=== PATIENT | female | born 1985 | race American Indian/Alaskan Native ===

== ENCOUNTER 2017-07-27 11:09 | Emergency (ER) | payer BC, MEDICAID, OTHER ==
[2017-07-27 11:32] VITALS: BP 120/72
[2017-07-27] MEDS ORDERED: Ketorolac 30 MG/ML SDV IM ONE (11:50)
--- NOTE | 2017-07-27 11:57 | EDM.PDOC ---
ED HPI GENERAL MEDICAL PROBLEM - General Chief Complaint: Back Pain or Injury Stated Complaint: PAIN ON WHOLE LEFT SIDE Time Seen by Provider: 07/27/17 11:43 Source of Information: Reports: Patient, RN, RN Notes Reviewed History Limitations: Reports: No Limitations - History of Present Illness INITIAL COMMENTS - FREE TEXT/NARRATIVE: Patient presents to ER with complaint of left sided pain. States she played volleyball on Friday. Pain began on . She states pain 9/10 with movement. At rest it is 5/10. Coughing and laughing makes it worse. No trouble with urination, bowel movement, fever, chills, nausea, vomiting, diarrhea, chest pain and shortness of breath. Duration: Getting Worse Location: Reports: Chest Quality: Reports: Ache Severity: Moderate Improves with: Reports: None Worsens with: Reports: None Associated Symptoms: Reports: No Other Symptoms Right Back Pain Score (Numeric/FACES): 8 - Related Data Allergies Allergy/AdvReac Type Severity Reaction Status Date / Time No Known Allergies Allergy Verified 05/05/14 07:51 Home Meds: Home Meds Acetaminophen [Tylenol] 650 mg PO Q4H PRN #30 tablet 05/06/14 [Rx] Ibuprofen 800 mg PO Q8H PRN #30 tablet 05/06/14 [Rx] Past Medical History - Past Health History Medical/Surgical History: Denies Medical/Surgical History Social & Family History - Family History Family Medical History: Noncontributory - Tobacco Use Smoking Status *Q: Current Some Day Smoker Years of Tobacco use: 5 Packs/Tins Daily: 0.1 Used Tobacco, but Quit: Yes Month Tobacco Last Used: 2010 Second Hand Smoke Exposure: Yes - Caffeine Use Caffeine Use: Reports: Coffee, Energy Drinks, Soda, Tea - Alcohol Use Days Per Week of Alcohol Use: 0 - Recreational Drug Use Recreational Drug Use: No - Living Situation & Occupation Living situation: Reports: with Family ED ROS GENERAL - Review of Systems Review Of Systems: ROS reveals no pertinent complaints other than HPI. ED EXAM, GENERAL - Physical Exam Exam: See Below Exam Limited By: No Limitations General Appearance: Alert, WD/WN, No Apparent Distress Eye Exam: Bilateral Eye: Normal Inspection Ears: Normal External Exam, Normal Canal, Hearing Grossly Normal, Normal TMs Nose: Normal Inspection, Normal Mucosa, No Blood Throat/Mouth: Normal Inspection, Normal Lips, Normal Teeth, Normal Gums, Normal Oropharynx, Normal Voice, No Airway Compromise Head: Atraumatic, Normocephalic Neck: Normal Inspection, Supple, Non-Tender, Full Range of Motion Respiratory/Chest: Other (tender) Cardiovascular: Normal Peripheral Pulses, Regular Rate, Rhythm, No Edema, No Gallop, No JVD, No Murmur, No Rub GI/Abdominal: Normal Bowel Sounds, Soft, Non-Tender, No Organomegaly, No Distention, No Abnormal Bruit, No Mass (Female) Exam: Deferred Rectal (Female) Exam: Deferred Back Exam: Other (tender left side.) Extremities: Normal Inspection, Normal Range of Motion, Non-Tender, Normal Capillary Refill, No Pedal Edema Neurological: Alert, Oriented, CN II-XII Intact, Normal Cognition, Normal Gait, Normal Reflexes, No Motor/Sensory Deficits Psychiatric: Normal Affect, Normal Mood Skin Exam: Warm, Dry, Intact, Normal Color, No Rash Lymphatic: No Adenopathy Course - Vital Signs Last Recorded V/S: Last Vital Signs Temp 98.4 F 07/27/17 11:31 Pulse 72 07/27/17 11:31 Resp 16 07/27/17 11:31 BP 120/72 07/27/17 11:31 Pulse Ox 100 07/27/17 11:31 - Orders/Labs/Meds Meds: Medications Discontinued Medications Generic Name Dose Route Start Last Admin Trade Name MiguelA ngelq PRN Reason Stop Dose Admin Ketorolac Tromethamine 60 mg 07/27/17 11:50 07/27/17 11:55 Toradol IM 07/27/17 11:51 60 mg ONETIME ONE Administration Orphenadrine Citrate 60 mg 07/27/17 12:00 07/27/17 11:58 Norflex IM 60 mg Q12H COSTA Administration Departure - Departure Time of Disposition: 11:56 Disposition: Home, Self-Care 01 Condition: Fair Clinical Impression: Muscle strain - Discharge Information Instructions: Back Injury Prevention, [id number], Muscle Strain, [id number] Forms: ED Department Discharge Additional Instructions: RX: Diclofenac, Norflex Rest, Heat, Ice as tolerated Follow up with your primary care facility if no improvement
== END 2017-07-27 12:14 | disposition home or self-care (01) ==
LOC: DL.ED 11:09
DX: T14.8XXA Other injury of unspecified body region, initial encounter (principal); F17.210 Nicotine dependence, cigarettes, uncomplicated; X58.XXXA Exposure to other specified factors, initial encounter; Y93.68 Activity, volleyball (beach) (court)
CPT/HCPCS: 96372; 99284; J1885; J2360

== ENCOUNTER 2018-10-22 02:31 | Inpatient (IN) | payer BC, MEDICAID ==
[2018-10-22] MEDS ORDERED: Lactated Ringers 1,000 ML IV ONE (04:03)
[2018-10-22] MEDS ORDERED: Misoprostol 400 MCG (4 X 100 MCG TAB) RECTAL PRN (04:20)
[2018-10-22] MEDS ORDERED: Lidocaine 1% 30 ML SDV INJECT PRN (04:20)
[2018-10-22] MEDS ORDERED: Tranexamic Acid 1,000 MG in Sodium Chloride 0.9% 100 ML IV PRN (04:20)
[2018-10-22] MEDS ORDERED: Carboprost Tromethamine 250 MCG/1 ML Amp IM PRN (04:20)
[2018-10-22] MEDS ORDERED: Sodium Chloride 0.9% 10 ML Syringe FLUSH PRN (04:20)
[2018-10-22] MEDS ORDERED: Methylergonovine 0.2 MG/1 ML Amp IM PRN (04:20)
[2018-10-22] MEDS ORDERED: Ondansetron 4 MG/2 ML SDV IV PRN (04:20)
[2018-10-22] MEDS ORDERED: Oxytocin/Normal Saline 30 UNIT/500 ML BAG IV SCH (04:30)
[2018-10-22] MEDS ORDERED: Calcium Carbonate 500 MG Tab.Chew PO PRN (09:46)
[2018-10-22] MEDS: Lactated Ringers 1,000 ML IV SCH ×3 (09:55→12:23)
--- NOTE | 2018-10-22 12:01 | PCM.LDHP ---
L&D History of Present Illness - General Date of Service: 10/22/18 (Admit H&P) Admit Problem/Dx: Patient Status Order with Admit Dx/Problem 10/22/18 04:20 Patient Status [ADT] Routine Admission Diagnosis/Problem Admission Diagnosis/Problem Labor established Source of Information: Patient, Old Records, Provider, RN, RN Notes Reviewed ( [facility] notes/ episode), Other History Limitations: Reports: No Limitations - History of Present Illness Introduction:: 33yo NA @ 38w5d presents to L&D with onset cxns. cervix 5-6cm AROM carried out. pitocin augmentation. requesting intrathecal. NST reactive. anticipate vag delivery. see episode for details. hmb Timing/Duration: Reports: minutes: (2-3), getting worse Location, : Reports: Uterus Severity: Moderate Associated Symptoms: Reports: vaginal discharge, mild amount - Related Data Allergies/Adverse Reactions: Allergies Allergy/AdvReac Type Severity Reaction Status Date / Time No Known Allergies Allergy Verified 10/22/18 03:07 Home Medications: Home Meds Acetaminophen [Tylenol] 650 mg PO Q4H PRN #30 tablet 05/06/14 [Rx] Ascorbate Calcium [Vitamin C] 500 mg PO DAILY 10/22/18 [History] Ferrous Sulfate 325 mg PO DAILY 10/22/18 [History] Levothyroxine [Synthroid] 50 mcg PO ACBREAKFAST 10/22/18 [History] PNV95/Ferrous Fumarate/FA [ Vitamin Tablet] 1 each PO DAILY 10/22/18 [ History] Ranitidine HCl [Ranitidine] 150 mg PO DAILY 10/22/18 [History] Past Medical History - Past Health History Medical/Surgical History: Denies Medical/Surgical History HEENT History: Reports: Other (See Below) Other HEENT History: wears glasses Gastrointestinal History: Reports: GERD Genitourinary History: Reports: [employer] History: Reports: , Spontaneous : 5 Para: 3 LMP (Approximate): Endocrine/Metabolic History: Reports: Hypothyroidism Hematologic History: Reports: Anemia - Infectious Disease History Infectious Disease History: Reports: Chicken Pox Social & Family History - Family History Family Medical History: Noncontributory - Tobacco Use Smoking Status *Q: Former Smoker Used Tobacco, but Quit: Yes Month/Year Tobacco Last Used: 01/2012 - Caffeine Use Caffeine Use: Reports: Tea - Recreational Drug Use Recreational Drug Use: No - Living Situation & Occupation Living situation: Reports: Single, with Family Occupation: Employed Social History Comment: [employer] [place]. nonsmoker. lives in with 3 kids. H&P Review of Systems - Review of Systems: Review Of Systems: ROS reveals no pertinent complaints other than HPI. General: Reports: No Symptoms HEENT: Reports: No Symptoms Pulmonary: Reports: No Symptoms Cardiovascular: Reports: No Symptoms Gastrointestinal: Reports: No Symptoms Genitourinary: Reports: No Symptoms Musculoskeletal: Reports: No Symptoms Skin: Reports: No Symptoms Psychiatric: Reports: No Symptoms Neurological: Reports: No Symptoms Hematologic/Lymphatic: Reports: No Symptoms Immunologic: Reports: No Symptoms L&D Exam - Exam Exam: See Below - Vital Signs Vital Signs: Last Vital Signs Temp 98.2 F 10/22/18 05:20 Pulse 77 10/22/18 05:20 Resp 16 10/22/18 05:20 BP 124/62 10/22/18 05:20 Pulse Ox Weight: 234 lb - OB Specific Fundal Height In cm: 40 Contraction Duration (sec): 80-100 Contraction Frequency (min): 2.5-7 Contraction Intensity: Mild to Moderate Movement: Active Heart Tones: Present Heart Tones per Min: 140 Heart Rate (FHR) Variability: Moderate (6-25 bmp) Presentation: Right Occiput Transverse (ROT) - Exam General: Alert, Oriented HEENT: PERRLA, Conjunctiva Clear, EACs Clear, EOMI, Hearing Intact, Mucosa Moist & [place], Nares Patent, Normal Nasal Septum, Posterior Pharynx Clear, TMs Clear Neck: Supple, Trachea Midline Lungs: Clear to Auscultation, Normal Respiratory Effort Cardiovascular: Regular Rate, Regular Rhythm GI/Abdominal Exam: Normal Bowel Sounds, Soft, Non-Tender, No Organomegaly, No Distention, No Abnormal Bruit, No Mass, Pelvis Stable Rectal Exam: Normal Exam, Normal Rectal Tone Genitourinary: Normal external exam, Normal bimanual exam, Normal speculum exam Back Exam: Normal Inspection, Full Range of Motion Extremities: Normal Inspection, Normal Range of Motion, Non-Tender, No Pedal Edema, Normal Capillary Refill Skin: Warm, Dry, Intact Neurological: Cranial Nerves Intact, Reflexes Equal Bilateral Psychiatric: Alert, Normal Affect, Normal Mood - Patient Data Lab Results Last 24 hrs: Laboratory Results - last 24 hr 10/22/18 Range/Units 03:55 WBC 9.7 (5.0-10.0) 10^3/uL RBC 3.84 L (4.2-5.4) 10^6/uL Hgb 11.3 L (12.0-16.0) g/dL Hct 34.3 L (37.0-47.0) % MCV 89.3 (80-100) fL MCH 29.4 (27.0-34.0) pg MCHC 32.9 L (33.0-35.0) g/dL Plt Count 224 (150-450) 10^3/uL Result Diagrams: 10/22/18 03:55 - Problem List (1) Blood type A+ SNOMED Code(s): 136109995 ICD Code: Z67.10 - TYPE A BLOOD, RH POSITIVE Status: Acute Current Visit : Yes (2) Anemia of SNOMED Code(s): 60077137 ICD Code: O99.019 - ANEMIA COMPLICATING , UNSPECIFIED TRIMESTER Status: Acute Current Visit: No (3) Normal SNOMED Code(s): 39542538 ICD Code: Z34.90 - ENCNTR FOR SUPRVSN OF NORMAL , UNSP, UNSP TRIMESTER Status: Acute Current Visit: No (4) Rubella non-immune SNOMED Code(s): 602762800 ICD Code: Z78.9 - OTHER SPECIFIED HEALTH STATUS Status: Acute Current Visit: No Problem List Initiated/Reviewed/Updated: Yes Orders Last 24hrs: Active Orders 24 hr Category Date Time Status Patient Status [ADT] Routine ADT 10/22/18 04:20 Active Communication Order [RC] ASDIRECTED Care 10/22/18 04:20 Active Notify Provider Vital Signs OB [RC] ASDIRECTED Care 10/22/18 04:20 Active Notify Provider [RC] PRN Care 10/22/18 04:20 Active OB Check [OM.PC] Click To Edit Care 10/22/18 02:40 Ordered Pump Management, Intrathecal [RC] ASDIRECTED Care 10/22/18 04:21 Active Up ad Nickie [RC] ASDIRECTED Care 10/22/18 04:20 Active Vital Signs [RC] 08,20 Care 10/22/18 04:20 Active Acetaminophen [Tylenol] Med 10/22/18 04:20 Active 650 mg PO Q4H PRN Calcium Carbonate [Tums] Med 10/22/18 09:46 Active 1,000 mg PO Q2H PRN Carboprost Tromethamine [Hemabate DS] Med 10/22/18 04:20 Active 250 mcg IM ASDIRECTED PRN Lactated Ringers [Ringers, Lactated] 1,000 ml Med 10/22/18 04:30 Active IV ASDIRECTED Lidocaine 1% [Xylocaine-MPF 1%] Med 10/22/18 04:20 Active 30 ml INJECT ASDIRECTED PRN Methylergonovine [Methergine] Med 10/22/18 04:20 Active 0.2 mg IM ASDIRECTED PRN Ondansetron [Zofran] Med 10/22/18 04:20 Active 4 mg IV Q4H PRN Oxytocin/Normal Saline [Pitocin in NS 30 UNIT/500 ML] Med 10/22/18 04:30 Active 30 unit in 500 ml IV TITRATE Sodium Chloride 0.9% [Saline Flush] Med 10/22/18 04:20 Active 10 ml FLUSH ASDIRECTED PRN Tranexamic Acid [Cyklokapron] 1,000 mg Med 10/22/18 04:20 Active Sodium Chloride 0.9% [Normal Saline] 100 ml IV ONETIME miSOPROStol [Cytotec] Med 10/22/18 04:20 Active 800 mcg RECTAL ASDIRECTED PRN Saline Lock Insert [OM.PC] Routine Oth 10/22/18 04:20 Ordered Resuscitation Status Routine Resus Stat 10/22/18 04:20 Ordered Medication Orders Acetaminophen (Tylenol) 650 mg PO Q4H PRN PRN Reason: Pain (Mild 1-3) and fever Calcium Carbonate/Glycine (Tums) 1,000 mg PO Q2H PRN PRN Reason: Heartburn Last Admin: 10/22/18 10:13 Dose: 1,000 mg Carboprost Tromethamine (Hemabate Ds) 250 mcg IM ASDIRECTED PRN PRN Reason: HEMORRHAGE Lactated Ringer's (Ringers, Lactated) 1,000 mls @ 125 mls/hr IV ASDIRECTED COSTA Last Admin: 10/22/18 11:55 Dose: 125 mls/hr Infusion: 10/22/18 11:55 Dose: 125 mls/hr Admin: 10/22/18 09:55 Dose: 125 mls/hr Oxytocin/Sodium Chloride (Pitocin In Ns 30 Unit/500 Ml) 30 unit in 500 mls @ 2 mls/hr IV TITRATE COSTA; Protocol Last Admin: 10/22/18 09:58 Dose: 2 munits/min, 2 mls/hr Tranexamic Acid 1,000 mg/ (Sodium Chloride) 110 mls @ 660 mls/hr IV ONETIME PRN PRN Reason: Bleeding Lidocaine HCl (Xylocaine-Mpf 1%) 30 ml INJECT ASDIRECTED PRN PRN Reason: Perineal Repair Methylergonovine Maleate (Methergine) 0.2 mg IM ASDIRECTED PRN PRN Reason: Hemorrhage Misoprostol (Cytotec) 800 mcg RECTAL ASDIRECTED PRN PRN Reason: Hemorrhage Ondansetron HCl (Zofran) 4 mg IV Q4H PRN PRN Reason: Nausea/Vomiting Sodium Chloride (Saline Flush) 10 ml FLUSH ASDIRECTED PRN PRN Reason: Keep Vein Open Assessment/Plan Comment:: term pegnancy 33yo NA @ 38w5d active labor AROM clear fluid pitocin augmentation requesting intrathecal reactive NST blood type A+ Plan: admit with routine orders. set up and anticipate vaginal delivery monitor closely. hmb
[2018-10-22] MEDS ORDERED: fentaNYL 100 MCG/2 ML SDV ONE (12:06)
[2018-10-22] MEDS ORDERED: EPINEPHrine 1 MG/ML SDV ONE (12:06)
--- NOTE | 2018-10-22 12:46 | PCM.PRNOTE ---
- Free Text/Narrative Note: Requested to provide analgesia to full term patient in severe pain. Upon entering the room, patient is sitting on edge of bed complaining of severe abdominal/pelvic pain and discomfort. Procedure was discussed with patient including adverse outcomes and expectations. Pt consented to analgesia, SAB/ IT. Pt placed into a proper sitting position. Landmarks for SAB/IT were identified and marked. Hands were washed and appropriate PPE was applied. Back was prepped with betadine x3. A sterile, transparent, fenestrated drape was applied. Excess betadine was removed. Using 3 mL of a 1% lidocaine solution , a skin wheel was placed at the L2/L3 interspace. A 24 ga (4 inch) Pencan spinal needle was inserted until positive for CSF. Negative for heme or paresthesias. Injected fentanyl 30 mcg, sufentanil 25 mcg, and 8.25 mg of a 0.75% bupivacaine solution with an epi wash. Pt was placed left lateral position for approximately 20 minutes. There were zero complications or adverse outcomes. Will continue to monitor. Procedure Date & Time: 10/22/18 [id number]
--- NOTE | 2018-10-22 14:59 | PCM.DEL ---
L & D Note - General Info Date of Service: 10/22/18 (Delivery note) Mother's Due Date: 10/31/18 (38w5d) - Delivery Note Labor: Spontaneous Delivery Outcome: Livebirth Infant Delivery Method: Spontaneous Vaginal Delivery-Single Infant Delivery Mode: Spontaneous Presentation: Right Occiput Transverse (ROT) Nuchal Cord: None Prep: Povidone-Iodine (Betadine Anesthesia Type: Intrathecal Amniotic Fluid Description: Clear Episiotomy Type: None Laceration: None Placenta: Intact, Expressed Cord: 3 Vessels Estimated Blood Loss: 200 (minimal--<200) Resuscitation Needed: No : Suctioned, Bulb Syringe, Stimulated, Warmed, [place] Used Provider: Tierra Davis Score 1 min: 9 Score 5 min: 9 Second Stage Interventions: Reports: Pushing, McRobert's Position Delivery Comments (Free Text/Narrative):: pushing, nurses holding legs back. pushed with one cxn and baby's head delivered. shoulders assited out by me, and remainder of baby delivered easily. viable male to mom's abdomen/chest for skin to skin. wiped clear and dry/stimulated. bulb suction. APGARs 9 & 9 strong cry at cord double clamped by me, then cut by Bernardo. cord blood sample obtained. 3VC noted. placenta delivered intact with gentle traction. perineum intact. EBL <200cc. both mom and baby doing well. . no complications. hmb - General Info Date of Service: 10/22/18 - Review of Systems General: Reports: No Symptoms HEENT: Reports: No Symptoms Pulmonary: Reports: No Symptoms Cardiovascular: Reports: No Symptoms Gastrointestinal: Reports: No Symptoms Genitourinary: Reports: No Symptoms Musculoskeletal: Reports: No Symptoms Skin: Reports: No Symptoms Neurological: Reports: No Symptoms Psychiatric: Reports: No Symptoms - Patient Data Vitals - Most Recent: Last Vital Signs Temp 97 F 10/22/18 08:57 Pulse 74 10/22/18 12:15 Resp 16 10/22/18 08:57 BP 126/61 10/22/18 12:15 Pulse Ox Weight - Most Recent: 234 lb Lab Results Last 24 Hours: Laboratory Results - last 24 hr 10/22/18 Range/Units 03:55 WBC 9.7 (5.0-10.0) 10^3/uL RBC 3.84 L (4.2-5.4) 10^6/uL Hgb 11.3 L (12.0-16.0) g/dL Hct 34.3 L (37.0-47.0) % MCV 89.3 (80-100) fL MCH 29.4 (27.0-34.0) pg MCHC 32.9 L (33.0-35.0) g/dL Plt Count 224 (150-450) 10^3/uL Med Orders - Current: Current Medications Acetaminophen (Tylenol) 650 mg PO Q4H PRN PRN Reason: Pain (Mild 1-3) and fever Calcium Carbonate/Glycine (Tums) 1,000 mg PO Q2H PRN PRN Reason: Heartburn Last Admin: 10/22/18 10:13 Dose: 1,000 mg Carboprost Tromethamine (Hemabate Ds) 250 mcg IM ASDIRECTED PRN PRN Reason: HEMORRHAGE Lactated Ringer's (Ringers, Lactated) 1,000 mls @ 125 mls/hr IV ASDIRECTED COSTA Last Admin: 10/22/18 12:23 Dose: 125 mls/hr Oxytocin/Sodium Chloride (Pitocin In Ns 30 Unit/500 Ml) 30 unit in 500 mls @ 2 mls/hr IV TITRATE COSTA; Protocol Last Titration: 10/22/18 12:00 Dose: 8 munits/min, 8 mls/hr Tranexamic Acid 1,000 mg/ (Sodium Chloride) 110 mls @ 660 mls/hr IV ONETIME PRN PRN Reason: Bleeding Lidocaine HCl (Xylocaine-Mpf 1%) 30 ml INJECT ASDIRECTED PRN PRN Reason: Perineal Repair Methylergonovine Maleate (Methergine) 0.2 mg IM ASDIRECTED PRN PRN Reason: Hemorrhage Misoprostol (Cytotec) 800 mcg RECTAL ASDIRECTED PRN PRN Reason: Hemorrhage Ondansetron HCl (Zofran) 4 mg IV Q4H PRN PRN Reason: Nausea/Vomiting Sodium Chloride (Saline Flush) 10 ml FLUSH ASDIRECTED PRN PRN Reason: Keep Vein Open Discontinued Medications Epinephrine HCl (Adrenalin) Confirm Administered Dose 1 mg .ROUTE .STK-MED ONE Stop: 10/22/18 12:07 Fentanyl (Sublimaze) Confirm Administered Dose 100 mcg .ROUTE .STK-MED ONE Stop: 10/22/18 12:07 Lactated Ringer's (Ringers, Lactated) 1,000 mls @ 999 mls/hr IV .BOLUS ONE Stop: 10/22/18 05:03 Last Admin: 10/22/18 11:32 Dose: 999 mls/hr Sufentanil Citrate (Sufenta) Confirm Administered Dose 50 mcg .ROUTE .STK-MED ONE Stop: 10/22/18 12:07 - Exam General: Alert, Oriented HEENT: Pupils Equal, Pupils Reactive, EOMI, Mucous Membr. Moist/[place] Neck: Supple Lungs: Clear to Auscultation, Normal Respiratory Effort Cardiovascular: Regular Rate, Regular Rhythm GI/Abdominal Exam: Normal Bowel Sounds, Soft, Non-Tender, Pelvis Stable (Female) Exam: Normal External Exam, Enlarged Uterus, Vaginal Bleeding Back Exam: Normal Inspection, Full Range of Motion Extremities: Normal Inspection, Normal Range of Motion, Non-Tender, No Pedal Edema (trace only), Normal Capillary Refill Skin: Warm, Dry, Intact Wound/Incisions: Healing Well Neurological: No New Focal Deficit Psy/Mental Status: Alert, Normal Affect, Normal Mood - Problem List & Annotations (1) Blood type A+ SNOMED Code(s): 592469075 Code(s): Z67.10 - TYPE A BLOOD, RH POSITIVE Status: Acute Current Visit: Yes (2) Anemia of SNOMED Code(s): 13848237 Code(s): O99.019 - ANEMIA COMPLICATING , UNSPECIFIED TRIMESTER Status: Acute Current Visit: No (3) Normal SNOMED Code(s): 80366337 Code(s): Z34.90 - ENCNTR FOR SUPRVSN OF NORMAL , UNSP, UNSP TRIMESTER Status: Acute Current Visit: No (4) Rubella non-immune SNOMED Code(s): 839038677 Code(s): Z78.9 - OTHER SPECIFIED HEALTH STATUS Status: Acute Current Visit: No (5) Vaginal delivery SNOMED Code(s): 941323361 Code(s): O80 - ENCOUNTER FOR FULL-TERM UNCOMPLICATED DELIVERY Status: Acute Current Visit: Yes (6) Mother currently breast-feeding SNOMED Code(s): 793615954 Code(s): TYL5390 - Status: Acute Current Visit: Yes - Problem List Review Problem List Initiated/Reviewed/Updated: Yes - My Orders Last 24 Hours: My Active Orders 10/22/18 02:40 OB Check [OM.PC] Click To Edit 10/22/18 04:20 Patient Status [ADT] Routine Communication Order [RC] ASDIRECTED Notify Provider Vital Signs OB [RC] ASDIRECTED Notify Provider [RC] PRN Up ad Nickie [RC] ASDIRECTED Vital Signs [RC] 08,20 Acetaminophen [Tylenol] 650 mg PO Q4H PRN Carboprost Tromethamine [Hemabate DS] 250 mcg IM ASDIRECTED PRN Lidocaine 1% [Xylocaine-MPF 1%] 30 ml INJECT ASDIRECTED PRN Methylergonovine [Methergine] 0.2 mg IM ASDIRECTED PRN Ondansetron [Zofran] 4 mg IV Q4H PRN Sodium Chloride 0.9% [Saline Flush] 10 ml FLUSH ASDIRECTED PRN Tranexamic Acid [Cyklokapron] 1,000 mg Sodium Chloride 0.9% [Normal Saline] 100 ml IV ONETIME miSOPROStol [Cytotec] 800 mcg RECTAL ASDIRECTED PRN Saline Lock Insert [OM.PC] Routine Resuscitation Status Routine 10/22/18 04:21 Pump Management, Intrathecal [RC] ASDIRECTED 10/22/18 04:30 Lactated Ringers [Ringers, Lactated] 1,000 ml IV ASDIRECTED Oxytocin/Normal Saline [Pitocin in NS 30 UNIT/500 ML] 30 unit in 500 ml IV TITRATE 10/22/18 09:46 Calcium Carbonate [Tums] 1,000 mg PO Q2H PRN - Plan Plan:: term pegnancy 33yo NA @ 38w5d active labor AROM clear fluid pitocin augmentation requesting intrathecal reactive NST blood type A+ Plan: admit with routine orders. set up and anticipate vaginal delivery monitor closely. hmb Assessment: uncomplicated vaginal delivery with one push over intact perineum viable male , 8lb 6oz, 3795g APGARs 9 & 9 born @ 1421 on 10[birth year]22-[birth year] . Plan: routine orders. rooming in as much as possible currently skin to skin in delivery room. hmb
[2018-10-22] MEDS ORDERED: Simethicone 80 MG Tab.Chew PO PRN (15:02)
[2018-10-22] MEDS ORDERED: Benzocaine/Menthol 20%-0.5% Spray 56 GM Canister TOP PRN (15:02)
[2018-10-22] MEDS ORDERED: Zolpidem 5 MG Tab PO PRN (15:02)
[2018-10-22] MEDS ORDERED: Measles, Mumps & Rubella Vaccine 0.5 ML SDV SUBCUT ONE (15:30)
[2018-10-22] MEDS: Ibuprofen 800 MG Tab PO PRN (17:12)
[2018-10-22] MEDS: Acetaminophen 325 MG Tab PO PRN (20:05)
[2018-10-22] MEDS: Docusate Sodium 100 MG Cap PO PRN (20:05)
[2018-10-23] MEDS: Ibuprofen 800 MG Tab PO PRN ×2 (00:59→08:20)
[2018-10-23] MEDS: Acetaminophen 325 MG Tab PO PRN ×3 (02:56→14:15)
[2018-10-23] MEDS: Docusate Sodium 100 MG Cap PO PRN (08:20)
[2018-10-23] MEDS ORDERED: Prenatal Multivitamin with Calcium/Folic Acid/Iron Tab PO SCH (09:00)
[2018-10-23 09:13] VITALS: BP 124/72
--- NOTE | 2018-10-23 15:08 | PCM.DCSUM1 ---
Discharge Summary - Hospital Course Free Text/Narrative:: Delivered vaginally yesterday afternoon @ 1421 and wishes to be discharged today after 24 hours. doing well. nursing. voiding, ambulating, eating without difficulty. cramping with nursing. afeb VSS fundus firm flow OK Rx for breast pump and ibuprofen 800mg #40 i QID prn written. continue PNV and iron supplementation. recheck @ 6 week PP check and sooner prn. other routine discharge instructions and orders. hmb Diagnosis: Stroke: No Modified Pratt Scale: No Symptoms at All Modified Pratt Scale Score: 0 - Discharge Data Discharge Date: 10/23/18 (discharge summary) Discharge Disposition: Home, Self-Care 01 Condition: Good - Discharge Diagnosis/Problem(s) (1) Blood type A+ SNOMED Code(s): 590784938 ICD Code: Z67.10 - TYPE A BLOOD, RH POSITIVE Status: Acute Current Visit : Yes (2) Anemia of SNOMED Code(s): 19608136 ICD Code: O99.019 - ANEMIA COMPLICATING , UNSPECIFIED TRIMESTER Status: Acute Current Visit: No (3) Normal SNOMED Code(s): 88457875 ICD Code: Z34.90 - ENCNTR FOR SUPRVSN OF NORMAL , UNSP, UNSP TRIMESTER Status: Acute Current Visit: No (4) Rubella non-immune SNOMED Code(s): 472613560 ICD Code: Z78.9 - OTHER SPECIFIED HEALTH STATUS Status: Acute Current Visit: No (5) Vaginal delivery SNOMED Code(s): 224422647 ICD Code: O80 - ENCOUNTER FOR FULL-TERM UNCOMPLICATED DELIVERY Status: Acute Current Visit: Yes (6) Mother currently breast-feeding SNOMED Code(s): 416953481 ICD Code: [id number] - Status: Acute Current Visit: Yes - Patient Summary/Data Consults: Consultations 10/22/18 15:02 Consult to Maintenance Person [CONS] Routine Hospital Course: routine course, uneventful. see above. hmb - Patient Instructions Diet: Regular Diet as Tolerated Activity: As Tolerated Driving: Do Not Drive Showering/Bathing: May Shower Notify Provider of: Fever, Increased Pain, Swelling and Redness - Discharge Plan *PRESCRIPTION DRUG MONITORING PROGRAM REVIEWED*: Not Applicable *COPY OF PRESCRIPTION DRUG MONITORING REPORT IN PATIENT GIOVANNA: Not Applicable Home Medications: Home Meds Acetaminophen [Tylenol] 650 mg PO Q4H PRN #30 tablet 05/06/14 [Rx] Ascorbate Calcium [Vitamin C] 500 mg PO DAILY 10/22/18 [History] Ferrous Sulfate 325 mg PO DAILY 10/22/18 [History] Levothyroxine [Synthroid] 50 mcg PO ACBREAKFAST 10/22/18 [History] PNV95/Ferrous Fumarate/FA [ Vitamin Tablet] 1 each PO DAILY 10/22/18 [ History] Ranitidine HCl [Ranitidine] 150 mg PO DAILY 10/22/18 [History] - Discharge Summary/Plan Comment DC Time >30 min.: No Discharge Summary/Plan Comment: follow up PP exam @ 6 weeks and sooner if needed. hmb - Patient Data Vitals - Most Recent: Last Vital Signs Temp 97.3 F 10/23/18 08:00 Pulse 67 10/23/18 08:00 Resp 16 10/23/18 08:00 BP 124/72 10/23/18 08:00 Pulse Ox 98 10/23/18 08:00 Weight - Most Recent: 234 lb Med Orders - Current: Current Medications Acetaminophen (Tylenol) 650 mg PO Q4H PRN PRN Reason: Pain (Mild 1-3) and fever Last Admin: 10/23/18 14:15 Dose: 650 mg Benzocaine/Menthol (Dermoplast Pain Relief [place]) 0 gm TOP Q4HR PRN PRN Reason: Perineal comfort measures Calcium Carbonate/Glycine (Tums) 1,000 mg PO Q2H PRN PRN Reason: Heartburn Last Admin: 10/22/18 10:13 Dose: 1,000 mg Carboprost Tromethamine (Hemabate Ds) 250 mcg IM ASDIRECTED PRN PRN Reason: HEMORRHAGE Docusate Sodium (Colace) 100 mg PO BID PRN PRN Reason: Constipation Last Admin: 10/23/18 08:20 Dose: 100 mg Lactated Ringer's (Ringers, Lactated) 1,000 mls @ 125 mls/hr IV ASDIRECTED COSTA Last Admin: 10/22/18 12:23 Dose: 125 mls/hr Oxytocin/Sodium Chloride (Pitocin In Ns 30 Unit/500 Ml) 30 unit in 500 mls @ 2 mls/hr IV TITRATE COSTA; Protocol Last Titration: 10/22/18 16:45 Dose: Infused Tranexamic Acid 1,000 mg/ (Sodium Chloride) 110 mls @ 660 mls/hr IV ONETIME PRN PRN Reason: Bleeding Ibuprofen (Motrin) 800 mg PO Q8HR PRN PRN Reason: Pain (moderate 4-6) Last Admin: 10/23/18 08:20 Dose: 800 mg Lidocaine HCl (Xylocaine-Mpf 1%) 30 ml INJECT ASDIRECTED PRN PRN Reason: Perineal Repair Methylergonovine Maleate (Methergine) 0.2 mg IM ASDIRECTED PRN PRN Reason: Hemorrhage Misoprostol (Cytotec) 800 mcg RECTAL ASDIRECTED PRN PRN Reason: Hemorrhage Ondansetron HCl (Zofran) 4 mg IV Q4H PRN PRN Reason: Nausea/Vomiting Prenat Multivit/Air Motor Repairer/Iron/Folic Ac ( Plus Iron) 1 each PO DAILY COSTA Last Admin: 10/23/18 08:20 Dose: 1 each Simethicone (Simethicone) 80 mg PO Q4HR PRN PRN Reason: Gas Sodium Chloride (Saline Flush) 10 ml FLUSH ASDIRECTED PRN PRN Reason: Keep Vein Open Zolpidem Tartrate (Ambien) 5 mg PO BEDTIME PRN PRN Reason: Insomnia Discontinued Medications Epinephrine HCl (Adrenalin) Confirm Administered Dose 1 mg .ROUTE .STK-MED ONE Stop: 10/22/18 12:07 Last Admin: 10/22/18 15:39 Dose: Not Given Fentanyl (Sublimaze) Confirm Administered Dose 100 mcg .ROUTE .STK-MED ONE Stop: 10/22/18 12:07 Last Admin: 10/22/18 15:39 Dose: Not Given Lactated Ringer's (Ringers, Lactated) 1,000 mls @ 999 mls/hr IV .BOLUS ONE Stop: 10/22/18 05:03 Last Admin: 10/22/18 11:32 Dose: 999 mls/hr Measles/Mumps/Rubella Vaccine Live (M-M-R Ii Vaccine) 0.5 ml SUBCUT .ONCE ONE Stop: 10/22/18 15:31 Last Admin: 10/23/18 08:59 Dose: 0.5 ml Sufentanil Citrate (Sufenta) Confirm Administered Dose 50 mcg .ROUTE .STK-MED ONE Stop: 10/22/18 12:07 Last Admin: 10/22/18 15:39 Dose: Not Given
[2018-10-23] MEDS ORDERED: EPINEPHrine 1 MG/ML SDV ONE (18:14)
[2018-10-23] MEDS ORDERED: fentaNYL 100 MCG/2 ML SDV ITHECAL ONE (18:14)
== END 2018-10-23 18:15 | disposition home or self-care (01) | DRG 560 ==
LOC: DL.OBCHECK 02:31 → DL.OB 04:07 → OBSVTOIN 14:21 → DL.OB 14:21 → DL.MS 10-23 09:41
PROVIDERS: ADMIT Family Medicine; ATTEND Family Medicine
PROC: 10E0XZZ Delivery of Products of Conception, External Approach (ICD-10-PCS; principal; 2018-10-22)
PROC: 10907ZC Drainage of Amniotic Fluid, Therapeutic from Products of Conception, Via Natural or Artificial Opening (ICD-10-PCS; 2018-10-22)
PROC: 3E0R3BZ Introduction of Anesthetic Agent into Spinal Canal, Percutaneous Approach (ICD-10-PCS; 2018-10-22)
PROC: 00HU33Z Insertion of Infusion Device into Spinal Canal, Percutaneous Approach (ICD-10-PCS; 2018-10-22)
DX: O99.02 Anemia complicating childbirth (principal); K21.9 Gastro-esophageal reflux disease without esophagitis; D64.9 Anemia, unspecified; O99.284 Endocrine, nutritional and metabolic diseases complicating childbirth; E03.9 Hypothyroidism, unspecified; O99.62 Diseases of the digestive system complicating childbirth; Z87.891 Personal history of nicotine dependence; Z3A.38 38 weeks gestation of pregnancy; Z37.0 Single live birth; Z23 Encounter for immunization
CPT/HCPCS: 36415; 51701; 59025; 59409; 85027; 90707; A9270-GY; J0171; J2590; J3010; J7120

== ENCOUNTER 2019-12-05 22:49 | Emergency (ER) | payer BC ==
[2019-12-05 23:05] VITALS: BP 142/93; PULSE 94
[2019-12-05] MEDS ORDERED: Sodium Chloride 0.9% 1,000 ML IV SCH (23:15)
[2019-12-05] MEDS ORDERED: Ondansetron 4 MG/2 ML SDV IVPUSH ONE (23:17)
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
[2019-12-05 23:45] LABS: ANION GAP 15.9 mEq/L (7-13); CHLORIDE,CL 100 mmol/L (98-107); SODIUM,NA 138 mmol/L (136-145)
[2019-12-06] MEDS ORDERED: Potassium Chloride 10 MEQ Tab.ER PO ONE (00:02)
[2019-12-06] MEDS ORDERED: Loperamide 2 MG Cap PO ONE (00:02)
== END 2019-12-06 00:51 | disposition home or self-care (01) ==
LOC: DL.ED 22:49
DX: K52.9 Noninfective gastroenteritis and colitis, unspecified (principal); E87.6 Hypokalemia; F17.210 Nicotine dependence, cigarettes, uncomplicated
CPT/HCPCS: 36415; 80053; 84703; 85025; 96361; 96374; 99284-25; A9270-GY; J2405; J7030

== ENCOUNTER 2021-03-18 00:30 | Emergency (ER) | payer BC ==
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
[2021-03-18 00:52] LABS: ANION GAP 17.3 mEq/L (7-13); CHLORIDE,CL 105 mmol/L (98-107); SODIUM,NA 142 mmol/L (136-145)
--- NOTE | 2021-03-18 01:14 | CR ---
PROCEDURE INFORMATION: Exam: XR Left Ribs with PA Chest Exam date and time: 03/18/2021 12:52 AM Age: 35 years old Clinical indication: Other: Pain; Additional info: Left chest injury TECHNIQUE: Imaging protocol: XR Left ribs with PA chest. Views: 3 views COMPARISON: No relevant prior studies available. FINDINGS: Lungs: Unremarkable. No consolidation. Pleural spaces: Unremarkable. No pleural effusion. No pneumothorax. Heart/Mediastinum: Unremarkable. No cardiomegaly. Bones/joints: Unremarkable. IMPRESSION: No acute findings.
[2021-03-18 01:51] VITALS: BP 116/71; PULSE 104
== END 2021-03-18 01:45 | disposition home or self-care (01) ==
LOC: DL.ED 00:30
DX: R07.9 Chest pain, unspecified (principal)
CPT/HCPCS: 36415; 71101-LT; 80053; 84484; 85025; 93005; 99285-25

== ENCOUNTER 2023-06-04 07:07 | Inpatient (IN) | payer BC, OTHER ==
[2023-06-04] MEDS ORDERED: Misoprostol 400 MCG (4 X 100 MCG TAB) RECTAL PRN (08:50)
[2023-06-04] MEDS ORDERED: Methylergonovine 0.2 MG/1 ML Amp IM PRN (08:50)
[2023-06-04] MEDS ORDERED: Tranexamic Acid 1,000 MG in Sodium Chloride 0.9% 100 ML IV PRN (08:50)
[2023-06-04] MEDS ORDERED: Carboprost Tromethamine 250 MCG/1 ML Amp IM PRN (08:50)
[2023-06-04] MEDS ORDERED: Sodium Chloride 0.9% 10 ML Syringe FLUSH PRN (08:50)
[2023-06-04] MEDS ORDERED: fentaNYL 100 MCG/2 ML SDV IVPUSH PRN (08:50)
[2023-06-04] MEDS ORDERED: Acetaminophen 325 MG Tab PO PRN (08:50)
[2023-06-04] MEDS ORDERED: Lidocaine 1% 30 ML SDV INJECT ONE (08:50)
[2023-06-04] MEDS ORDERED: Lactated Ringers 1,000 ML IV ONE (08:50)
[2023-06-04] MEDS ORDERED: Lactated Ringers 1,000 ML IV SCH (09:00)
[2023-06-04] MEDS ORDERED: Penicillin G Potassium 5 MILLUNITS in Sodium Chloride 0.9% 100 ML IV ONE (09:00)
[2023-06-04 09:08] LABS: HEMATOCRIT 34.1 % (37.0-47.0); HEMOGLOBIN 11.3 g/dL (12.0-16.0); MEAN CORPUSCULAR HEMOGLOBIN 30.3 pg (27.0-34.0); MEAN CORPUSCULAR HGB CONC 33.1 g/dL (33.0-35.0); MEAN CORPUSCULAR VOLUME 91.4 fL (80-100); RED BLOOD CELL COUNT 3.73 10^6/uL (4.2-5.4); WHITE BLOOD CELL COUNT,WBC 8.2 10^3/uL (5.0-10.0)
[2023-06-04] MEDS: Oxytocin/Normal Saline 30 UNIT/500 ML BAG IV SCH ×2 (09:48→18:01)
[2023-06-04] MEDS: Ondansetron 4 MG/2 ML SDV IVPUSH PRN ×2 (12:18→14:26)
[2023-06-04] MEDS ORDERED: Bupivacaine 0.25% 10 ML SDV ONE (12:24)
[2023-06-04] MEDS ORDERED: fentaNYL 100 MCG/2 ML SDV ONE (12:24)
[2023-06-04] MEDS ORDERED: Ropivacaine 100 ML EPIDUR ONE (12:25)
[2023-06-04] MEDS ORDERED: fentaNYL 100 MCG/2 ML SDV EPIDUR ONE (12:25)
[2023-06-04] MEDS ORDERED: Bupivacaine 0.5% 30 ML SDV NERVRT ONE (12:25)
[2023-06-04] MEDS ORDERED: Penicillin G Potassium 5,000,000 Unit Vial ONE (12:26)
[2023-06-04] MEDS ORDERED: Phenylephrine HCl In 0.9% NaCl 1 MG/10 ML Syringe IVPUSH PRN (12:44)
[2023-06-04] MEDS ORDERED: ePHEDrine 50 MG/ML SDV IVPUSH PRN (12:44)
[2023-06-04] MEDS ORDERED: Ropivacaine 200 MG in Premix Bag 1 BAG EPIDUR SCH (12:45)
[2023-06-04] MEDS ORDERED: Penicillin G Potassium 3 MILLUNITS in Sodium Chloride 0.9% 100 ML IV SCH (13:00)
[2023-06-04] MEDS ORDERED: Benzocaine/Menthol 20%-0.5% Spray 78 GM Cannister TOP PRN (15:45)
[2023-06-04] MEDS ORDERED: Simethicone 80 MG Tab.Chew PO PRN (15:45)
[2023-06-04] MEDS ORDERED: Oxytocin 10 Units/1 ML SDV IM PRN (15:45)
[2023-06-04] MEDS ORDERED: Benzocaine/Cetylpyridinium/Menthol Lozenge MUCMEM PRN (15:55)
[2023-06-04] MEDS ORDERED: Witch Hazel Medicated Pads 100/Jar TOP PRN (17:52)
[2023-06-04] MEDS: Docusate Sodium 100 MG Cap PO PRN (17:53)
[2023-06-04] MEDS: Ibuprofen 800 MG Tab PO PRN (17:53)
[2023-06-04] MEDS: Acetaminophen 325 MG Tab PO PRN (23:34)
[2023-06-05] MEDS: Ibuprofen 800 MG Tab PO PRN (02:32)
[2023-06-05] MEDS: Acetaminophen 325 MG Tab PO PRN (08:44)
[2023-06-05] MEDS: Docusate Sodium 100 MG Cap PO PRN (08:46)
[2023-06-05] MEDS ORDERED: Prenatal Multivitamin with Calcium/Folic Acid/Iron Tab PO SCH (09:00)
[2023-06-05 09:06] VITALS: BP 107/59; PULSE 81
== END 2023-06-05 17:30 | disposition home or self-care (01) | DRG 560 ==
LOC: DL.OB 08:30 → OBSVTOIN 15:25
PROVIDERS: ADMIT Family Medicine; ATTEND Family Medicine
PROC: 10E0XZZ Delivery of Products of Conception, External Approach (ICD-10-PCS; principal; 2023-06-04)
PROC: 3E033VJ Introduction of Other Hormone into Peripheral Vein, Percutaneous Approach (ICD-10-PCS; 2023-06-04)
PROC: 3E0R3BZ Introduction of Anesthetic Agent into Spinal Canal, Percutaneous Approach (ICD-10-PCS; 2023-06-04)
PROC: 00HU33Z Insertion of Infusion Device into Spinal Canal, Percutaneous Approach (ICD-10-PCS; 2023-06-04)
PROC: 10907ZC Drainage of Amniotic Fluid, Therapeutic from Products of Conception, Via Natural or Artificial Opening (ICD-10-PCS; 2023-06-04)
DX: O99.02 Anemia complicating childbirth (principal); O99.214 Obesity complicating childbirth; O99.824 Streptococcus B carrier state complicating childbirth; D64.9 Anemia, unspecified; Z37.0 Single live birth; Z3A.39 39 weeks gestation of pregnancy
CPT/HCPCS: 01967; 36415; 51701; 59409; 85027; A9270-GY; J0665; J2405; J2540; J2590; J2795; J3010; J3490; J7120

== ENCOUNTER 2024-06-28 11:47 | Emergency (ER) | payer BC ==
[2024-06-28 12:05] LABS: APPEARANCE,URINE CLEAR (CLEAR); BILIRUBIN,URINE NEGATIVE (NEGATIVE); GLUCOSE,URINE 100 (NEGATIVE); KETONES,URINE NEGATIVE (NEGATIVE); LEUKOCYTE ESTERASE,URINE NEGATIVE (NEGATIVE); NITRITE,URINE POSITIVE (NEGATIVE); OCCULT BLOOD,URINE TRACE-INTACT (NEGATIVE); PH,URINE 6.5 (5.0-9.0); PROTEIN,URINE NEGATIVE (NEGATIVE); UROBILINOGEN,URINE 0.2 mg/dL (0.2-1.0)
[2024-06-28 12:18] LABS: COLOR,URINE ORANGE (YELLOW)
[2024-06-28 12:31] LABS: BACTERIA,URINE FEW /HPF (0-FEW/HPF); EPITHELIAL CELLS,URINE FEW /HPF (NOT SEEN); MUCUS,URINE FEW /LPF (NOT SEEN); RBC,URINE 0-5 /HPF (0-5); WBC,URINE 0-5 /HPF (0-5/HPF)
[2024-06-28 12:33] LABS: BASOPHILS PERCENT AUTO 0.3 % (0.0-1.0); EOSINOPHILS PERCENT AUTO 0.8 % (1.0-3.0); HEMATOCRIT 38.1 % (37.0-47.0); HEMOGLOBIN 12.4 g/dL (12.0-16.0); LYMPHOCYTES PERCENT AUTO 15.3 % (20.5-50.1); MEAN CORPUSCULAR HGB CONC 32.5 g/dL (33.0-35.0); MONOCYTES PERCENT AUTO 2.9 % (2-8); NEUTROPHILS PERCENT AUTO 80.7 % (42.2-75.2); PLATELET COUNT,PLT 278 10^3/uL (150-450); RED BLOOD CELL COUNT 4.14 10^6/uL (4.2-5.4)
[2024-06-28 12:53] LABS: A/G RATIO 0.9; ALANINE AMINOTRANSFERASE,ALT 78 U/L (14-59); ALBUMIN 3.8 g/dL (3.4-5.0); ALKALINE PHOSPHATASE 53 U/L (46-116); ANION GAP 14.8 mEq/L (7-13); ASPARTATE AMNIOTRANSFERASE,AST 16 U/L (15-37); BILIRUBIN TOTAL 0.3 mg/dL (0.2-1.0); BLOOD UREA NITROGEN,BUN 17 mg/dL (7-18); BUN/CREATININE RATIO 21.2 (No establ ref range); CALCIUM 8.8 mg/dL (8.5-10.1); CARBON DIOXIDE,CO2 27 mmol/L (21-32); CHLORIDE,CL 102 mmol/L (98-107); ESTIMATED GFR 98 mL/min (>=60); GLUCOSE RANDOM 164 mg/dL (70-99); POTASSIUM,K 3.8 mmol/L (3.5-5.1); PROTEIN TOTAL,TP 7.9 g/dL (6.4-8.2); SODIUM,NA 140 mmol/L (136-145)
[2024-06-28 13:04] VITALS: BP 128/82; PULSE 72
== END 2024-06-28 13:02 | disposition home or self-care (01) ==
LOC: DL.ED 11:47
DX: N39.0 Urinary tract infection, site not specified (principal); E66.9 Obesity, unspecified; Z79.899 Other long term (current) drug therapy
CPT/HCPCS: 36415; 80053; 81001; 84702; 85025; 87086; 99284

== ENCOUNTER 2024-07-26 09:35 | Emergency (ER) | payer BC ==
[2024-07-26] MEDS: Orphenadrine 60 MG/2 ML Inj IM ONE (10:04)
[2024-07-26] MEDS: Ketorolac 30 MG/ML SDV IM ONE (10:07)
[2024-07-26] MEDS: Acetaminophen 500 MG Tab PO ONE (10:08)
[2024-07-26 10:25] VITALS: BP 138/68; PULSE 68
== END 2024-07-26 10:55 | disposition home or self-care (01) ==
LOC: DL.ED 09:35
DX: M54.6 Pain in thoracic spine (principal); E66.9 Obesity, unspecified; Z68.39 Body mass index [BMI] 39.0-39.9, adult; Z79.899 Other long term (current) drug therapy
CPT/HCPCS: 96372; 99283; A9270; J1885; J2360

== ENCOUNTER 2024-07-29 20:56 | Emergency (ER) | payer BC ==
[2024-07-29 21:18] LABS: APPEARANCE,URINE CLEAR (CLEAR); BILIRUBIN,URINE NEGATIVE (NEGATIVE); COLOR,URINE DARK YELLOW (YELLOW); GLUCOSE,URINE 100 (NEGATIVE); KETONES,URINE NEGATIVE (NEGATIVE); LEUKOCYTE ESTERASE,URINE NEGATIVE (NEGATIVE); NITRITE,URINE POSITIVE (NEGATIVE); OCCULT BLOOD,URINE TRACE-INTACT (NEGATIVE); PH,URINE 5.5 (5.0-9.0); PROTEIN,URINE NEGATIVE (NEGATIVE)
[2024-07-29] MEDS: Ondansetron 4 MG/2 ML SDV IVPUSH ONE ×2 (21:27→22:39)
[2024-07-29] MEDS: Ketorolac 30 MG/ML SDV IVPUSH ONE (21:27)
[2024-07-29 21:28] LABS: BASOPHILS PERCENT AUTO 0.3 % (0.0-1.0); EOSINOPHILS PERCENT AUTO 1.3 % (1.0-3.0); HEMATOCRIT 37.7 % (37.0-47.0); HEMOGLOBIN 12.3 g/dL (12.0-16.0); LYMPHOCYTES PERCENT AUTO 24.7 % (20.5-50.1); MEAN CORPUSCULAR HEMOGLOBIN 29.7 pg (27.0-34.0); MEAN CORPUSCULAR HGB CONC 32.6 g/dL (33.0-35.0); MEAN CORPUSCULAR VOLUME 91.1 fL (80-100); NEUTROPHILS PERCENT AUTO 68.7 % (42.2-75.2); PLATELET COUNT,PLT 321 10^3/uL (150-450); RED BLOOD CELL COUNT 4.14 10^6/uL (4.2-5.4); WHITE BLOOD CELL COUNT,WBC 12.1 10^3/uL (5.0-10.0)
[2024-07-29] MEDS: Sodium Chloride 0.9% 1,000 ML IV ONE (21:35)
[2024-07-29 21:36] LABS: BACTERIA,URINE FEW /HPF (0-FEW/HPF); EPITHELIAL CELLS,URINE FEW /HPF (NOT SEEN); MUCUS,URINE OCCASIONAL /LPF (NOT SEEN); RBC,URINE 0-5 /HPF (0-5); WBC,URINE NOT SEEN /HPF (0-5/HPF)
[2024-07-29 21:50] LABS: A/G RATIO 0.8; ALBUMIN 3.7 g/dL (3.4-5.0); ANION GAP 13.7 mEq/L (7-13); BILIRUBIN TOTAL 0.2 mg/dL (0.2-1.0); CALCIUM 8.8 mg/dL (8.5-10.1); CREATININE 0.89 mg/dL (0.55-1.02); EST CRCL DRUG DOSING (CG) 84.16 mL/min; POTASSIUM,K 3.7 mmol/L (3.5-5.1); PROTEIN TOTAL,TP 8.1 g/dL (6.4-8.2)
[2024-07-29] MEDS: Morphine 4 MG/ML Syringe IVPUSH ONE (22:10)
[2024-07-29] MEDS: cefTRIAXone 1 GM Vial IVPUSH ONE (22:10)
[2024-07-29] MEDS: Tamsulosin 0.4 MG Cap.ER PO ONE (23:43)
[2024-07-29] MEDS: Acetaminophen/HYDROcodone 325-5 MG Tab PO ONE (23:43)
[2024-07-30] MEDS: Take Home: Tamsulosin HCl 0.4 MG, 6 Cap Pack PO ONE (00:17)
[2024-07-30] MEDS: Take Home: Ondansetron 4 MG Tab.DIS, 5 Tab Pack PO ONE (00:17)
[2024-07-30] MEDS: Take Home: Acetaminophen/HYDROcodone 325-5 MG, 5 Tab Pack PO ONE (00:17)
[2024-07-30 00:27] VITALS: BP 120/65; PULSE 83
== END 2024-07-30 00:24 | disposition home or self-care (01) ==
LOC: DL.ED 20:56
DX: N13.2 Hydronephrosis with renal and ureteral calculous obstruction (principal); E66.9 Obesity, unspecified; Z68.37 Body mass index [BMI] 37.0-37.9, adult; Z79.899 Other long term (current) drug therapy
CPT/HCPCS: 36415; 74176; 80053; 81001; 81025; 85025; 87086; 96361; 96374; 96375; 96376; 99284; 99284-25; A9270-GY; J0696; J1885; J2270; J2405; J7030; Q0162